=== PATIENT | female | born 1955 | race Hispanic/Latino ===

== ENCOUNTER 2018-01-28 22:31 | Emergency (ER) | payer MEDICARE, BC ==
[2018-01-28 22:41] VITALS: RESP 18; TEMP 97.8
[2018-01-28 22:43] VITALS: BMI 23.8
--- NOTE | 2018-01-28 22:47 | ED PDOC ---
Arrival/HPI - General Time Seen by Provider: 01/28/18 22:33 Historian: Patient - History of Present Illness Narrative History of Present Illness (Text): 01/28/18 22:45 62 year old female, whose past medical history includes depression, presents to the emergency department for evaluation of injury to the left ankle. Patient states she was at a [place] party when she accidentally tripped and twisted her ankle. Patient reports pain when attempting to bare weight or ambulate on area. She states she had taken Aleve earlier and does not request any pain medication. No other injuries noted. Patient denies any fever, chills, chest pain, shortness of breath, back pain, neck pain, headache, dizziness, or any other complaints. PMD: Dr. Chapman Symptom Onset: Gradual Symptom Course: Unchanged Activities at Onset: Light Context: Home, Tripped Past Medical History - Provider Review Nursing Documentation Reviewed: Yes - Infectious Disease Hx of Infectious Diseases: None - Tetanus Immunization Tetanus Immunization: Unknown - Cardiac Hx Pacemaker: No - Pulmonary Hx Tuberculosis: No - Neurological Hx Paralysis: No - Hematological/Oncological Hx Blood Transfusions: No Hx Blood Transfusion Reaction: No - Musculoskeletal/Rheumatological Hx Musculoskeletal Disorders: Yes - Genitourinary/Gynecological Hx Sexually Transmitted Diseases: No - Psychiatric Hx Emotional Abuse: No Hx Physical Abuse: No Hx Substance Use: No - Surgical History Hx Hysterectomy: Yes Hx Tonsillectomy: Yes - Anesthesia Hx Anesthesia Reactions: No Hx Malignant Hyperthermia: No - Suicidal Assessment Feels Threatened In Home Enviroment: No Family/Social History - Physician Review Nursing Documentation Reviewed: Yes Family/Social History: No Known Family HX Hx Alcohol Use: Yes (SOCIAL) Hx Substance Use: No Hx Substance Use Treatment: No Allergies/Home Meds Allergies/Adverse Reactions: Allergies IBANDRONATE FROM [facility] Allergy (Uncoded 11/11/16 07:22) MUSCLE CRAMPING Home Medications: Home Meds Medication Instructions Recorded Confirmed Brexpiprazole [Rexulti] 0.5 mg PO DAILY 11/05/16 01/28/18 Citalopram Hydrobromide [Celexa] 40 mg PO DAILY 11/05/16 01/28/18 Dextroamphetamine/Amphetamine 10 mg PO DAILY 01/28/18 01/28/18 [Adderall 10 mg Tablet] Melatonin [Melatonin] 5 mg PO HS 01/28/18 01/28/18 clonazePAM [Klonopin] 0.5 mg PO HS 01/28/18 01/28/18 Review of Systems - Physician Review All systems were reviewed & negative as marked: Yes - Review of Systems Constitutional: absent: Fevers, Other (Chills) Respiratory: absent: SOB Cardiovascular: absent: Chest Pain Musculoskeletal: Other (Pain to the left ankle). absent: Back Pain, Neck Pain Neurological: absent: Headache, Dizziness Physical Exam Vital Signs Reviewed: Yes Vital Signs Temp Pulse Resp BP Pulse Ox 01/29/18 00:30 75 18 149/89 100 01/28/18 22:40 97.8 F 76 18 156/85 H 97 Temperature: Afebrile Blood Pressure: Hypertensive Pulse: Regular Respiratory Rate: Normal Appearance: Positive for: Well-Appearing, Non-Toxic, Comfortable Pain Distress: None Mental Status: Positive for: Alert and Oriented X 3 - Systems Exam Head: Present: Atraumatic, Normocephalic Pupils: Present: PERRL Extroacular Muscles: Present: EOMI Conjunctiva: Present: Normal Mouth: Present: Moist Mucous Membranes Neck: Present: Normal Range of Motion Respiratory/Chest: Present: Clear to Auscultation, Good Air Exchange. No: Respiratory Distress, Accessory Muscle Use Cardiovascular: Present: Regular Rate and Rhythm, Normal S1, S2. No: Murmurs Abdomen: No: Tenderness, Distention, Peritoneal Signs Back: Present: Normal Inspection Upper Extremity: Present: Normal Inspection. No: Cyanosis, Edema Lower Extremity: Present: Swelling (to the left lateral ankle area. Pain on any attempt of flexion and extension), Neurovascularly Intact, Other (area of ecchymosis medial ankle/leg region) Neurological: Present: GCS=15, CN II-XII Intact, Speech Normal Skin: Present: Warm, Dry, Normal Color. No: Rashes Psychiatric: Present: Alert, Oriented x 3, Normal Insight, Normal Concentration Medical Decision Making ED Course and Treatment: 01/28/18 22:46 Impression: 62 year old female presents complaining of pain to the left ankle s/p mechanical fall and twisting her ankle. Plan: -- Ankle Left 3 view x-ray -- CT Left Lower Extremity w/o contrast -- Reassess and disposition Progress Notes: 01/28/18 23:55 Ankle Left 3 view x-ray Impression: As read by me, no fracture. EXAM: CT Left Lower Extremity Without Intravenous Contrast, Ankle Dictated and Authenticated by: Sai Tyler MD 01/29/2018 12:00 AM Addendum created by Sai Tyler MD on 01/29/2018 12:14 AM Eastern Time ([place] & [place]) CORRECTION Bones/joints: Avulsion fracture dorsal aspect of talus. Avulsion fracture lateral aspect of calcaneus. Nondisplaced vertical fracture medial malleolus. No dislocation. Osteopenia. IMPRESSION: 1. Fractures as above. 2. Soft tissue lesion, nonspecific. Clinical correlation is needed. 01/29/18 00:48 Case discussed with Orthopedist Dr. Kinney who is aware and agrees with the plan to splint/non weight bearing/ice/elevation/use of crutches.. Patient will follow up with outpatient visit to Dr. Kinney. 01/29/18 00:49 On re-evaluation, patient is in no acute distress. I have discussed the results and plan with the patient, who expresses understanding. Patient in agreement with plan to be discharged home. Patient is stable for discharge. Patient was instructed to follow up with Orthopedist Dr. Kinney or return if symptoms worsen or new concerning symptoms arise. - RAD Interpretation Radiology Orders: 01/28/18 22:44 ANKLE LEFT 3 VIEWS ROUTINE [RAD] Stat 01/28/18 23:25 EXT LOWER W/O CONTRAST LEFT [CT] Stat - Scribe Statement The provider has reviewed the documentation as recorded by the Scribe Bautista Willis Provider Scribe Attestation: All medical record entries made by the Scribe were at my direction and personally dictated by me. I have reviewed the chart and agree that the record accurately reflects my personal performance of the history, physical exam, medical decision making, and the department course for this patient. I have also personally directed, reviewed, and agree with the discharge instructions and disposition. Disposition/Present on Arrival - Present on Arrival Any Indicators Present on Arrival: No History of DVT/PE: No History of Uncontrolled Diabetes: No Urinary Catheter: No History Surgical Site Infection Following: None - Disposition Have Diagnosis and Disposition been Completed?: Yes Diagnosis: Avulsion fracture of talus, Avulsion fracture of calcaneus, Fractured medial malleolus Disposition: HOME/ ROUTINE Disposition Time: 00:09 Patient Plan: Discharge Condition: GOOD Discharge Instructions (ExitCare): Ankle Sprain (DC), Heel Fracture (DC), Avulsion Fracture (DC) Additional Instructions: Maintain leg splint/use crutches/no weight bearing on the affected area/meds as prescribed//Must follow up with your orthopedist on Wednesday Prescriptions: Naproxen [Naprosyn] 500 mg PO BID PRN #[id number] tab PRN Reason: Pain Referrals: Silver Chapman DO [Primary Care Provider] - Follow up with primary Anirudh Kinney MD [Staff Provider] - Follow up with primary Forms: Anywhere to Go ([place])
--- NOTE | 2018-01-29 | CT ---
EXAM: CT Left Lower Extremity Without Intravenous Contrast, Ankle CLINICAL HISTORY: 62 years old, female; Injury or trauma; Fall; Initial encounter; Blunt trauma; Ankle; Left; Additional info: Ankle injury/r/o fracture TECHNIQUE: Axial computed tomography images of the left ankle without intravenous contrast. All CT scans at this facility use one or more dose reduction techniques, viz.: automated exposure control; ma/kV adjustment per patient size (including targeted exams where dose is matched to indication; i.e. head); or iterative reconstruction technique. Coronal and sagittal reformatted images were created and reviewed. COMPARISON: DX - ANKLE LEFT 3 VIEWS ROUTINE 2018-01-28 22:53 FINDINGS: Bones/joints: Avulsion fracture dorsal aspect of talus. No dislocation. Soft tissues: Moderate to extensive stranding within subcutaneous tissues. 2.4 x 1.8 x 1.7 cm hypodense lesion posterior medial to distal tibia. IMPRESSION: 1. Avulsion fracture of talus. 2. Soft tissue lesion, nonspecific. Clinical correlation is needed.
[2018-01-29 00:57] VITALS: BP 149/89; PULSE 75; O2SAT 100
--- NOTE | 2018-01-29 09:27 | RAD ---
PROCEDURE: Left Ankle Radiographs. HISTORY: injury COMPARISON: None FINDINGS: BONES: No evidence of acute displaced fracture nor dislocation. JOINTS: Normal. No osteoarthritis. Ankle mortise maintained. Talar dome intact SOFT TISSUES: Moderate diffuse soft tissue swelling extends proximally into the soft tissues surrounding the distal tibia and fibula. There are also subcutaneous calcifications possibly representing calcified phleboliths. OTHER FINDINGS: None. IMPRESSION: No definite evidence of acute displaced fracture nor dislocation. If symptoms persist or occult fracture suspected clinically recommend repeat radiographs in 5-10 days as most fractures should become radiographically evident in this timeframe. Diffuse soft tissue swelling as above.
== END 2018-01-29 00:30 | disposition home or self-care (01) ==
LOC: ED 22:31
DX: S92.152A Displaced avulsion fracture (chip fracture) of left talus, initial encounter for closed fracture (principal); S82.52XA Displaced fracture of medial malleolus of left tibia, initial encounter for closed fracture; S92.002A Unspecified fracture of left calcaneus, initial encounter for closed fracture; W01.0XXA Fall on same level from slipping, tripping and stumbling without subsequent striking against object, initial encounter; Y92.009 Unspecified place in unspecified non-institutional (private) residence as the place of occurrence of the external cause

== ENCOUNTER 2018-11-16 06:19 | Day surgery (SDC) | payer MEDICARE, BC ==
[2018-11-16] MEDS ORDERED: Propofol 10 mg/ml Inj (20 ML) ONE (08:08)
[2018-11-16] MEDS ORDERED: Sodium Chloride 0.9% 1,000 ML IV SCH (08:15)
[2018-11-16 09:54] VITALS: BP 129/75; PULSE 60; RESP 14; TEMP 98; O2SAT 99
== END 2018-11-16 09:49 | disposition home or self-care (01) ==
LOC: ENDO 06:19
PROVIDERS: ATTEND Specialist
DX: Z12.11 Encounter for screening for malignant neoplasm of colon (principal); D12.8 Benign neoplasm of rectum; K64.8 Other hemorrhoids; Z86.010 Personal history of colon polyps
CPT/HCPCS: 45385; 88305; J2001; J2704; J7030; J7040